=== PATIENT | female | born 1990 | race Caucasian/White ===

== ENCOUNTER → 2018-05-12 11:50 | Outpatient (CLI) | payer OTHER, SELFPAY ==
[2018-05-12 13:42] LABS: HCG Quantitative /Beta subunit < 2.39 mIU/mL
== END ==
PROVIDERS: PCP Physician Assistant; Visit Provider Specialist
DX: N91.2 Amenorrhea, unspecified (principal)
CPT/HCPCS: 36415; 84702

== ENCOUNTER → 2018-06-02 13:05 | Outpatient (CLI) | payer OTHER, SELFPAY ==
--- NOTE | 2018-06-02 13:09 | DI.RAD.S_ITS ---
PROCEDURE: HL HYSTEROSAPINGOGRAPHY INDICATIONS: infertility COMPARISON: None. FINDINGS: Patient had a documented negative test prior to the study. Following speculum insertion, a balloon-tip catheter was inserted into the cervical canal, and secured by inflating the balloon. Contrast was then injected into the endometrial canal. Uterus: The uterine cavity appears normal in size and morphology, without synechiae or masses. Fallopian tubes: Both fallopian tubes fill with contrast, and appear normal in caliber and morphology. There is ready dispersion of contrast into the peritoneal cavity. IMPRESSION: 1. Both fallopian tubes are patent. 2. Endometrial cavity appears normal, with apparent air bubble in the left horn. Dictated by: Roosevelt Hernandez M.D. on 06/02/2018 at 14:23 Approved by: Roosevelt Hernandez M.D. on 06/02/2018 at 14:24
--- NOTE | 2018-06-02 14:08 | PM.PROC.1 ---
Procedures Date/Time Date of procedure: 06/02/18 Time of procedure: 14:08 General Procedure description: Hysterosalpingogram Patient signed a consent form for hysterosalpingogram. Risk of infection or reaction to dye. With side effect cramping. A speculum was placed in the vagina and a single-tooth tenaculum placed on the anterior lip the cervix. A balloon tipped catheter was placed in the uterus with the balloon inflated with 1 1/2CC of air. Slow injection of contrast with fluoroscopy was performed. After finishing the study the catheter was removed. The patient tolerated the procedure well. Final results pending but the initial report is normal hysterosalpingogram with good spill of dye through both tubes and no uterine abnormalities. Complications: none
== END ==
PROVIDERS: PCP Physician Assistant; Visit Provider Specialist
DX: N97.9 Female infertility, unspecified (principal)
CPT/HCPCS: 58340; 74740

== ENCOUNTER → 2018-07-02 08:33 | Outpatient (CLI) | payer OTHER, SELFPAY ==
[2018-07-02 09:17] LABS: Glucose 95 mg/dL (70-100)
[2018-07-02 09:32] LABS: Follicle Stimulating Hormone 5.53 mIU/mL
[2018-07-02 10:31] LABS: Thyroid Stimulating Hormone 1.27 uIU/mL (0.47-4.68)
[2018-07-04 14:30] LABS: Insulin Level Total 5.4 uIU/mL (2.0-19.6)
== END ==
PROVIDERS: PCP Physician Assistant; Visit Provider Obstetrics & Gynecology
DX: N97.0 Female infertility associated with anovulation (principal)
CPT/HCPCS: 36415; 82947; 83001; 83002; 83525; 84439; 84443; 84481

== ENCOUNTER → 2018-07-04 10:02 | Outpatient (CLI) | payer OTHER, SELFPAY ==
[2018-07-04 11:39] LABS: Final Volume 0.5 mL; Initial Volume 4.5 mL; Semen 30 min. Liquification? Yes
== END ==
PROVIDERS: PCP Physician Assistant; Visit Provider Obstetrics & Gynecology
DX: N97.0 Female infertility associated with anovulation (principal)
CPT/HCPCS: 58323

== ENCOUNTER → 2018-07-24 08:36 | Outpatient (CLI) | payer OTHER, SELFPAY ==
[2018-07-24 10:21] LABS: HCG Quantitative /Beta subunit < 2.39 mIU/mL
== END ==
PROVIDERS: PCP Physician Assistant; Visit Provider Obstetrics & Gynecology
DX: N91.2 Amenorrhea, unspecified (principal)
CPT/HCPCS: 36415; 84702

== ENCOUNTER → 2018-09-17 06:58 | Outpatient (CLI) | payer OTHER, SELFPAY ==
[2018-09-17 07:56] LABS: Final Volume 0.5 mL; Initial Volume 3.2 mL; Semen 30 min. Liquification? Yes
== END ==
PROVIDERS: Visit Provider Obstetrics & Gynecology
DX: N97.0 Female infertility associated with anovulation (principal)
CPT/HCPCS: 58323

== ENCOUNTER → 2018-10-16 08:10 | Outpatient (CLI) | payer OTHER, SELFPAY ==
[2018-10-16 11:55] LABS: Final Volume 0.5 mL; Semen 30 min. Liquification? Yes
== END ==
PROVIDERS: Visit Provider Obstetrics & Gynecology
DX: N97.0 Female infertility associated with anovulation (principal)
CPT/HCPCS: 58323